=== PATIENT | male | born 2000 | race American Indian/Alaskan Native ===

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

== ENCOUNTER 2022-07-30 07:23 | Emergency (ER) | payer MEDICAID ==
[2022-07-30] MEDS ORDERED: ONDANSETRON 4 MG/2 ML INJ IV ONE (09:22)
[2022-07-30] MEDS ORDERED: SODIUM CHLORIDE 0.9% 1000 ML 1,000 ML IV ONE ×2 (09:22→14:00)
--- NOTE | 2022-07-30 09:23 | Emergency Department Report ---
<STEFF SWENSON - Last Filed: 07/31/22 16:00> ED Abdominal Pain HPI - General Chief Complaint: Extremity Injury, Lower Stated Complaint: LEFT SIDE PAIN Time Seen by Provider: 07/30/22 08:42 Source: patient Mode of arrival: Ambulatory Limitations: No Limitations - History of Present Illness Initial Comments: Patient is a 21-year-old male that comes to the emergency room with acute on chronic left flank pain. He states that he has a history of kidney stones. He has been seen in the past for this. He continues to not follow-up. Today presents with left flank pain. He has no fever or chills. He has no nausea and vomiting. MD Complaint: abdominal pain, flank pain -: Gradual, week(s) Location: L flank Severity scale (0 -10): 4 Quality: aching Consistency: constant Improves With: nothing Worsens With: nothing Associated Symptoms: denies other symptoms, nausea. denies: diarrhea, fever, chills, constipation, dysuria, hematemesis, hematochezia, melena, hematuria, anorexia, syncope - Related Data Previous Rx's Medication Instructions Recorded Last Taken Type cephALEXin [Keflex] 500 mg PO Q12HR #14 cap 12/27/21 Unknown Rx Acetaminophen/Codeine [Tylenol 1 tab PO Q6H PRN #15 tab 07/30/22 Unknown Rx /Codeine # 3 tab] Ketorolac [Toradol] 10 mg PO Q6H PRN #12 tab 07/30/22 Unknown Rx Ondansetron [Zofran Odt] 4 mg PO Q8HR PRN #12 tab.rapdis 07/30/22 Unknown Rx Tamsulosin [Flomax] 0.4 mg PO QDAY #10 cap 07/30/22 Unknown Rx Allergies Allergy/AdvReac Type Severity Reaction Status Date / Time No Known Allergies Allergy Verified 07/30/22 07:47 ED Review of Systems Comment: All other systems reviewed and negative ED Past Medical Hx - Past Medical History Previous Medical History?: Yes Hx Kidney Stones: Yes - Surgical History Past Surgical History?: No - Family History Family history: no significant - Social History Smoking Status: Current Every Day Smoker Substance Use Type: Alcohol - Medications Home Medications: Home Medications Medication Instructions Recorded Confirmed Last Taken Type cephALEXin [Keflex] 500 mg PO Q12HR #14 cap 12/27/21 Unknown Rx Acetaminophen/Codeine [Tylenol 1 tab PO Q6H PRN #15 tab 07/30/22 Unknown Rx /Codeine # 3 tab] Ketorolac [Toradol] 10 mg PO Q6H PRN #12 tab 07/30/22 Unknown Rx Ondansetron [Zofran Odt] 4 mg PO Q8HR PRN #12 tab.rapdis 07/30/22 Unknown Rx Tamsulosin [Flomax] 0.4 mg PO QDAY #10 cap 07/30/22 Unknown Rx ED Physical Exam - General Limitations: No Limitations General appearance: alert, in no apparent distress - Head Head exam: Present: atraumatic, normocephalic - Eye Eye exam: Present: normal appearance - ENT ENT exam: Present: mucous membranes moist - Neck Neck exam: Present: normal inspection - Respiratory Respiratory exam: Present: normal lung sounds bilaterally. Absent: respiratory distress - Cardiovascular Cardiovascular Exam: Present: regular rate, normal rhythm. Absent: systolic murmur, diastolic murmur, rubs, gallop - GI/Abdominal GI/Abdominal exam: Present: soft, normal bowel sounds - Rectal Rectal exam: Present: deferred - Extremities Exam Extremities exam: Present: normal inspection - Back Exam Back exam: Present: normal inspection - Neurological Exam Neurological exam: Present: alert, oriented X3 - Psychiatric Psychiatric exam: Present: normal affect, normal mood - Skin Skin exam: Present: warm, dry, intact, normal color. Absent: rash ED Medical Decision Making - Lab Data Result diagrams: 07/30/22 09:28 07/30/22 11:47 - Radiology Data Radiology results: report reviewed, image reviewed See report - Medical Decision Making Labs 07/30/22 07/30/22 07/30/22 09:28 09:45 11:47 WBC 7.2 RBC 3.88 Hgb 10.9 L Hct 34.2 L MCV 88 MCH 28 MCHC 32 RDW 12.8 L Plt Count 263 Sodium 140 Potassium 4.2 Chloride 105.0 Carbon Dioxide 23 Anion Gap 16 BUN 12 Creatinine 1.0 Estimated GFR > 60 BUN/Creatinine Ratio 12 Glucose 130 H Calcium 9.2 Urine Color Yellow Urine Turbidity Cloudy Urine pH 7.0 Ur Specific [place] 1.021 Urine Protein 30 mg/dl Urine Glucose (UA) Neg Urine Ketones Neg Urine Blood Mod Urine Nitrite Neg Urine Bilirubin Neg Urine Urobilinogen < 2 Ur Leukocyte Esterase Tr Urine WBC (Auto) 4.0 Urine RBC (Auto) 73.0 Calcium Oxalate Crystal 1+ Amorphous Crystals 2+ Urine Mucus 2+ Vital Signs 07/30/22 07/30/22 07:43 16:08 Temperature 98.1 F 98.2 F Pulse Rate 74 62 Respiratory 16 18 Rate Blood Pressure 142/82 133/74 [Right] O2 Sat by Pulse 100 100 Oximetry Patient medicated in the ER with 2 L normal saline, Zofran, Toradol. With that he got pain control. UA noted. Labs noted. WBC normal. Creatinine normal. No fever or chills. Patient taking p.o. I have educated patient on the findings from his studies today. I explained to him that if he is not careful he is going to go into kidney failurE. I tried to encourage him to follow-up with Dr. Kim Kumar or another urologist for his ongoing care of his kidney stones. He verbalizes understanding. On discharge exam patient ambulatory, not ill nontoxic and taking p.o. Patient discharged home with discharge plan of care including diet, activity, medications and follow-up. He verbalizes understanding of plan of care. - Differential Diagnosis Rule out kidney stone ED Disposition Clinical Impression: Kidney stones Disposition: 01 HOME / SELF CARE / HOMELESS Is pt being admited?: No Does the pt Need Aspirin: No Condition: Stable Instructions: Kidney Stones, [id number] Additional Instructions: stay well hydrated meds as ordered follow up with nephrology MD referral below follow up with pcp referral below Prescriptions: Tamsulosin [Flomax] 0.4 mg PO QDAY #10 cap Ketorolac [Toradol] 10 mg PO Q6H PRN #12 tab PRN Reason: Pain Acetaminophen/Codeine [Tylenol /Codeine # 3 tab] 1 tab PO Q6H PRN #15 tab PRN Reason: Pain , Severe (7-10) Ondansetron [Zofran Odt] 4 mg PO Q8HR PRN #12 tab.rapdis PRN Reason: Nausea And Vomiting Referrals: JOHNY BENITEZ MD [Primary Care Provider] - 3-5 Days JESUS PEÑA MD [Staff Physician] - 3-5 Days Forms: Work/School Release Form(ED) Time of Disposition: 15:56 <GUNNAR WORRELL - Last Filed: 08/01/22 00:34> ED Review of Systems ROS: Stated complaint: LEFT SIDE PAIN Other details as noted in HPI ED Course Vital Signs 07/30/22 07/30/22 07:43 16:08 Temperature 98.1 F 98.2 F Pulse Rate 74 62 Respiratory 16 18 Rate Blood Pressure 142/82 133/74 [Right] O2 Sat by Pulse 100 100 Oximetry ED Medical Decision Making - Lab Data Result diagrams: 07/30/22 09:28 07/30/22 11:47 - Medical Decision Making I reviewed this chart after patient discharged from the hospital. I did not evaluate patient in the ED and plan was not discussed prior to patient discharge. CT report reviewed indicating worsening left hydroureteronephrosis with stable 8 mm calcification in the left hemipelvis similar to December 2021 CT scan. Radiology recommendation was inpatient studies. Case discussed with Steff who states patient symptoms improved and patient does not like signs of active infection at time of ED evaluation. She informed me that she called and actually schedule an appointment with Dr. Bello although this appointment time is not documented. I attempted to call pt at this time at number evaluated on chart. Pt did not answer. I left a message to call the ED speak to me regarding his current symptoms and follow up No call back by the end of my shift at 12:30 AM This patient was seen independently by the midlevel provider. I was available for consult however I was not involved in the decision making or the disposition of this patient. Gunnar Worrell Critical care attestation.: If time is entered above; I have spent that time in minutes in the direct care of this critically ill patient, excluding procedure time. ED Disposition Is pt being admited?: No
[2022-07-30 10:37] LABS: Hematocrit 34.2 % (35.5-45.6); Hemoglobin 10.9 gm/dl (11.8-15.2); Mean Corpuscular HGB Conc 32 % (32-34); Mean Corpuscular Volume 88 fl (84-94); Platelet Count 263 K/mm3 (140-440); Red Blood Count 3.88 M/mm3 (3.65-5.03); Red Cell Distribution Width 12.8 % (13.2-15.2)
[2022-07-30 11:11] LABS: Bilirubin,Urine NEG (Negative); Blood,Urine MOD (Negative); Color,Urine Yellow (Yellow); Urobilinogen,Urine < 2 mg/dL (<2.0)
[2022-07-30 11:29] LABS: Amorphous Crystals,Urine 2+; Calcium Oxalate Crystals,Urine 1+; Mucus,Urine 2+ /HPF
[2022-07-30] MEDS ORDERED: KETOROLAC 30 MG/1 ML INJ IV ONE (12:05)
[2022-07-30 12:40] LABS: BUN/Creatinine Ratio 12; Blood Urea Nitrogen 12 mg/dL (9-20); Calcium 9.2 mg/dL (8.4-10.2); Hemolysis Index 1
--- NOTE | 2022-07-30 13:30 | Cat Scan Report ---
CT ABDOMEN AND PELVIS WITH CONTRAST INDICATION / CLINICAL INFORMATION: ABD PAIN. TECHNIQUE: Axial CT images were obtained through the abdomen and pelvis after 100 IV contrast. All C T scans at this location are performed using CT dose reduction for ALARA by means of automated exposu re control. COMPARISON: December 2021 FINDINGS: LOWER CHEST: No significant abnormality. LIVER: No significant abnormality. GALLBLADDER: No significant abnormality. BILE DUCTS: No significant abnormality. PANCREAS: No significant abnormality. SPLEEN: No significant abnormality. ADRENALS: No significant abnormality. RIGHT KIDNEY / URETER: No significant abnormality. LEFT KIDNEY / URETER: Moderate severe left hydroureteronephrosis. A calcification is seen within the left pelvis measuring 7 mm which appears along the posterior margin of the distal left ureter. A few small 1-3 mm nonobstructive calculi are present within the left kidney. Striated nephrogram is seen t o a mild/moderate degree. STOMACH / SMALL BOWEL: No significant abnormality. COLON: No significant abnormality. APPENDIX: No significant abnormality. PERITONEUM: No free fluid. No free air. No fluid collection. LYMPH NODES: No significant adenopathy. AORTA / ARTERIES: No significant abnormality. IVC / VEINS: No significant abnormality. URINARY BLADDER: No significant abnormality. REPRODUCTIVE ORGANS: No significant abnormality. ADDITIONAL FINDINGS: None. SKELETAL SYSTEM: No significant abnormality. IMPRESSION: 1. Moderate severe left hydroureteronephrosis , increased from previous study, in the setting of slig htly started nephrogram and perinephric stranding, concerning for a superimposed component of pyelone phritis. An 8 mm calcification in the left hemipelvis near the distal left ureter could reflect any o bstructing distal left ureteral calculus, however similar appearance as compared to the previous stud y raise the suspicion for an obstructing epithelialized distal ureteral calculus versus a mimicking l eft hemipelvis phlebolith in the setting of an occult distal left ureteral obstructing process. Findi ngs warrant inpatient urology evaluation and retrograde urography/ureteroscopy and/or CT urography to include delayed phase imaging. 2. Nonobstructive left nephrolithiasis. Signer Name: Madison Huitron MD Signed: 07/30/2022 1:25 PM Workstation Name: [email or web address]
[2022-07-30 16:09] VITALS: BP 133/74
== END 2022-07-30 16:08 | disposition home or self-care (01) ==
LOC: ED 07:23
DX: N20.0 Calculus of kidney (principal); F17.200 Nicotine dependence, unspecified, uncomplicated; Z72.89 Other problems related to lifestyle; Z79.899 Other long term (current) drug therapy
CPT/HCPCS: 36415; 74177; 80048; 81001; 85027; 96361; 96374; 96375; 99284; J1885; J2405; J7030; Q9967